=== PATIENT | male | born 1945 | race Caucasian/White ===

== ENCOUNTER 2023-06-09 16:01 | Emergency (ER) | payer OTHER, MEDICARE ==
[~2023-06-09] VITALS: Ht 165.1 cm; Wt 71.1 kg
[2023-06-09] MEDS ORDERED: HYDROcodone/acetaminophen 5mg/325mg tablet PO ONE (16:30)
[2023-06-09] MEDS ORDERED: METH-798 PO (17:22)
[2023-06-09 17:28] VITALS: BP 138/90; PULSE 88; TEMP 98.3; O2SAT 99
--- NOTE | 2023-06-09 18:26 | NUR ---
I AGREE WITH THE ASSESSMENT OF Logan ANDERSON LVN.
[2023-06-09 18:35] VITALS: RESP 18
== END 2023-06-09 17:34 | disposition home or self-care (01) ==
LOC: ER 16:02
DX: S33.5XXA Sprain of ligaments of lumbar spine, initial encounter (principal); Z88.8 Allergy status to other drugs, medicaments and biological substances; W18.2XXA Fall in (into) shower or empty bathtub, initial encounter; Z91.81 History of falling; Y93.89 Activity, other specified; Y92.89 Other specified places as the place of occurrence of the external cause; Y99.8 Other external cause status
CPT/HCPCS: 72110; 99284